=== PATIENT | male | born 1960 | race Two or more races ===

== ENCOUNTER 2023-05-01 15:27 | Emergency (ER) | payer OTHER, MEDICARE, MEDICAID, SELFPAY ==
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
[2023-05-01 15:47] VITALS: BP 138/80; PULSE 80; RESP 18; TEMP 36.7; O2SAT 99; BMI 25.8
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
== END 2023-05-01 19:45 | disposition home or self-care (01) ==
PROVIDERS: Emergency Provider Emergency Medicine; PCP Pediatrics
DX: S80.11XA Contusion of right lower leg, initial encounter (principal); S80.12XA Contusion of left lower leg, initial encounter; R60.0 Localized edema; M54.2 Cervicalgia; V43.52XA Car driver injured in collision with other type car in traffic accident, initial encounter; Y93.9 Activity, unspecified; Y92.410 Unspecified street and highway as the place of occurrence of the external cause; Y99.9 Unspecified external cause status
CPT/HCPCS: 73590; 99282; 99283

== ENCOUNTER 2023-05-10 09:55 | Outpatient (AMB) | payer OTHER, SELFPAY ==
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
[2023-05-10 09:58] VITALS: BP 114/70; PULSE 74; O2SAT 98; BMI 26.5
== END 2023-05-10 10:32 | disposition home or self-care (01) ==
PROVIDERS: PCP Physician Assistant; Visit Provider Nurse Practitioner Family
DX: M79.604 Pain in right leg (principal); M79.605 Pain in left leg; S16.1XXA Strain of muscle, fascia and tendon at neck level, initial encounter; Z04.3 Encounter for examination and observation following other accident; V89.2XXA Person injured in unspecified motor-vehicle accident, traffic, initial encounter
CPT/HCPCS: 99213

== ENCOUNTER 2023-06-06 12:07 | Outpatient (AMB) | payer OTHER, SELFPAY ==
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
[2023-06-06 12:38] VITALS: BP 124/70; PULSE 86; RESP 12; O2SAT 97; BMI 26.2
== END 2023-06-06 13:10 | disposition home or self-care (01) ==
PROVIDERS: PCP Physician Assistant; Visit Provider Nurse Practitioner Family
DX: M79.604 Pain in right leg (principal); E78.00 Pure hypercholesterolemia, unspecified
CPT/HCPCS: 99213

== ENCOUNTER 2023-06-10 09:12 | Outpatient (REF) | payer OTHER, SELFPAY ==
--- NOTE | ~2023-06-10 | XR_ITS ---
EXAMINATION: XR TIBIA AND FIBULA, RIGHT CLINICAL INFORMATION: Leg pain COMPARISON: Tibia and fibula radiographs 05/01/2023 TECHNIQUE: AP and lateral views of the right tibia and fibula were obtained. FINDINGS: No acute fracture or dislocation. Subcentimeter indeterminate sclerotic lesion in the lateral tibial plateau. Quadriceps tendon enthesopathy. The joint spaces are maintained. Ankle mortise appears congruent. Atherosclerotic vascular calcification. XR/XR tibia fibula RT 2V IMPRESSION: 1. No acute fracture or dislocation. Quadriceps tendon enthesopathy. 2. Subcentimeter indeterminate sclerotic lesion in the lateral tibial plateau, the absence of primary malignancy possibly reflecting a bone island. If patient has a primary malignancy CT or bone scan would be more sensitive for evaluation.
[2023-06-10 09:51] LABS: Basophils Absolute Auto 0.1 X10*3/uL (0.0-0.2); Basophils Percent Auto 0.7 % (0-2); Eosinophils Absolute Auto 0.1 X10*3/uL (0.0-0.4); Eosinophils Percent Auto 1.6 % (0-4); Hematocrit 47.2 % (42.0-52.0); Hemoglobin 14.7 g/dl (14.0-18.0); Imm Gran Abs Auto 0.04 X10*3/uL (0.00-0.03); Imm Gran Pct Auto 0.5 % (0.0-0.4); Lymphocytes Absolute Auto 2.8 X10*3/uL (1.2-4.9); MANUAL DIFF FLAG NO; Mean Corpuscular HGB Conc 31.1 g/dl (31.0-36.0); Mean Corpuscular Hemoglobin 26.1 pg (27.0-33.0); Mean Corpuscular Volume 83.8 fL (80.0-98.0); Mean Platelet Volume 10.5 fL (9.4-12.4); Monocytes Absolute Auto 0.6 X10*3/uL (0.1-1.2); Monocytes Percent Auto 7.7 % (2-11); Neutrophils Percent Auto 52.5 % (45-73); Platelet Count 251 X10*3/uL (160-400); Red Blood Count 5.63 X10*6/uL (4.60-5.80); Red Cell Distribution Width 13.9 % (11.0-16.0); White Blood Count 7.6 X10*3/uL (4.8-10.8)
[2023-06-10 10:47] LABS: Alanine Aminotransferase 21 U/L (0-40); Albumin Level 4.3 g/dL (3.5-5.0); Alkaline Phosphatase 107 U/L (39-117); Anion Gap 16 (12-20); Aspartate Amino Transferase 21 U/L (5-37); Bilirubin Total 0.5 mg/dL (0.0-1.0); Blood Urea Nitrogen 23 mg/dL (9-16); Calcium 9.4 mg/dL (8.4-10.2); Carbon Dioxide 24 mmol/L (22-29); Chloride 107 mmol/L (96-108); Cholesterol 244 mg/dL (<200); Estimated Glomerular Filt Rate > 60; Glucose Fasting 94 mg/dL (60-99); HDL Cholesterol 51 mg/dL (>40); LDL Cholesterol Calculated 172 mg/dL (<100); Potassium 4.6 mmol/L (3.3-5.1); Sodium 142 mmol/L (135-145); Total Protein 7.5 g/dL (6.5-8.0); Triglycerides 105 mg/dL (<150)
[2023-06-10 10:59] LABS: TSH reflex Free T4 1.61 uIU/mL (0.32-4.0)
== END 2023-06-10 09:13 | disposition home or self-care (01) ==
LOC: HO.XRAY 09:12
PROVIDERS: PCP Physician Assistant; Visit Provider Nurse Practitioner Family
DX: Z13.220 Encounter for screening for lipoid disorders (principal); Z13.29 Encounter for screening for other suspected endocrine disorder; Z13.0 Encounter for screening for diseases of the blood and blood-forming organs and certain disorders involving the immune mechanism; M79.604 Pain in right leg; E78.00 Pure hypercholesterolemia, unspecified
CPT/HCPCS: 36415; 73590; 80053; 80061; 84443; 85025

== ENCOUNTER 2023-07-26 06:56 | Outpatient (REF) | payer OTHER, SELFPAY ==
--- NOTE | ~2023-07-26 | CT_ITS ---
EXAMINATION: CT LOWER LEG WITHOUT CONTRAST, RIGHT CLINICAL INFORMATION: Disorder of bone, unspecified. Possible bone island. COMPARISON: Right tibia/fibular radiographs dated 06/10/2023. TECHNIQUE: Contiguous axial CT images of the right lower leg were obtained without contrast. Sagittal and coronal reformats were provided and reviewed. This CT examination was performed using dose optimization techniques as appropriate, variously including the following: *Automated exposure control *Adjustment of mA and/or kV according to patient size (this includes techniques or standardized protocols for targeted exams where dose is matched to indication/reason for exam; i.e. extremities or head) *Use of iterative reconstruction technique. DOSE: 308 mGy-cm. FINDINGS: Within the posterolateral aspect of the lateral tibial plateau, adjacent to the proximal tibiofibular joint, there are 2 sclerotic foci measuring up to 0.6 and 0.4 cm. No adjacent periosteal reaction. No soft tissue component or lytic component. Findings are consistent with bone islands. Additional small bone islands within the distal femur and talus. No concerning lytic or blastic osseous lesion. No acute fracture or dislocation. There are corticated ossifications adjacent to the medial and lateral malleoli, consistent with remote, unfused avulsion fractures. There is a healed, oblique distal fibular fracture in anatomic alignment. Dystrophic ossification along the anterior aspect of the lateral malleolus and posterolateral aspect of the tibial plafond, consistent with remote avulsion injuries. The ankle mortise is maintained. No abnormal soft tissue mass or fluid collection. No significant joint effusion. The visualized muscles and tendons are grossly intact; however, evaluation is limited on CT examination. CT/CT lower leg RT wo IV con IMPRESSION: 1. Small bone and within the proximal tibia corresponding to the prior radiographs. Additional bone islands within the distal femur and talus. No concerning lytic or blastic osseous lesion. 2. Healed distal fibular fracture as well as remote, unfused fracture fragments at the medial and lateral malleoli. No acute fracture or dislocation.
== END 2023-07-26 06:57 | disposition home or self-care (01) ==
LOC: HO.CT 06:56
PROVIDERS: PCP Physician Assistant; Visit Provider Nurse Practitioner Family
DX: M89.9 Disorder of bone, unspecified (principal)
CPT/HCPCS: 73700

== ENCOUNTER 2023-08-13 10:02 | Outpatient (AMB) | payer OTHER, SELFPAY ==
[2023-08-13 10:59] VITALS: BP 120/80; PULSE 67; O2SAT 97; BMI 25.8
--- NOTE | 2023-08-13 10:59 | A.OFFPC_ITS ---
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 Language: Ukrainian Accompanied by: Self / Same As Patient Allergies No Known Allergies Allergy (Verified 08/13/23 11:11) Medication List - Last Reconciled 08/13/23 by Aubrey Van PA-C naproxen 250 mg PO BID PRN Tobacco use date assessed: 05/10/23 Dental Screening Dental Screen Date: 08/13/23 Did you have a dental visit in the last 12 months?: No Did you have a dental problem in the last 6 months where you did not have access to dental care?: No Was dental information given to patient?: Patient has dentist HPI 2 month follow up HPI Details Patient is a 63-year-old female here today for follow-up visit. This is the 1st time I am meeting this 60 year year old Ukrainian-speaking male. Has a past medical history of hyperlipidemia Concern-> he was previously seeing a urologist for his erectile dysfunction. Was on medication in the past with good affect. He was interested in restarting medication for his erectile dysfunction. HLD: Most recent lipid panel showing elevated total cholesterol. Was previously on statin therapy though has been taken. Will work on lifestyle modifications on reducing his low high cholesterol foods in his diet. If LDL remains above 160 will consider restarting low-dose statin therapy. Laboratory Tests 06/10/23 Unknown Creatinine 0.99 Cholesterol 244 H LDL Cholesterol, C alc 172 H [facility] Medical History No pertinent family history Herniated cervical disc Lower back pain No pertinent past medical history Surgical History No pertinent past surgical history Family History Mother No problems noted. Father No problems noted. Brother No problems noted. Brother No problems noted. Brother No problems noted. Brother No problems noted. Sister No problems noted. Sister No problems noted. Sister No problems noted. Son No problems noted. Son No problems noted. Son No problems noted. Daughter No problems noted. Social History Housing: Apartment Patient Tobacco Use Status: Never used Tobacco e-Cigarette/Vaping Use: Never Used Second Hand Smoke Exposure: No Current occupational status: unemployed Cognitive needs: No Hearing needs: No Vision needs: Yes Questionnaire Thrive Questionnaire Date Thrive assessed: 05/10/23 DWIGHT-7 AMB Questionnaire DWIGHT-7 Date DWIGHT - 7 assessed: 05/10/23 Source: Developed by Drs. Wan Donis, Ailyn Fay, Chase Mercedes and colleagues, with an educational walt from [employer]. Review of Systems Const Denies headache(s) Eyes Denies loss of vision ENT Denies vertigo, Denies dizziness, Denies headache(s) and Denies sore throat Card Denies chest pain, Denies leg edema and Denies lightheadedness Resp Denies cough, Denies hemoptysis and Denies wheezing GI Denies abdominal pain, Denies melena, Denies constipation, Denies diarrhea and Denies vomiting Denies dysuria, Denies urinary frequency and Denies urinary urgency Musc Denies arthralgias, Denies joint swelling, Denies numbness and Denies tingling Neuro Denies Abnormal speech present, Denies behavioral changes, Denies vertigo, Denies dizziness, Denies headache(s), Denies loss of vision, Denies memory loss, Denies numbness and Denies tingling Psych Denies anxiety, Denies behavioral changes, Denies depression, Denies memory loss and Denies panic attacks Angel/Lymph Denies easy bleeding and Denies easy bruising Aller/Immun Denies wheezing Physical exam (Primary Care) Vital Signs: Last Vital Signs Pulse 67 08/13/23 10:59 BP 120/80 08/13/23 10:59 Pulse Ox 97 08/13/23 10:59 Oxygen Delivery Method Room Air 08/13/23 10:59 BMI result Body Mass Index 25.8 Tobacco/Smoking Status: Tobacco use Status Tobacco use date assessed 05/10/23 08/13/23 11:03 Patient Tobacco Use Status Never used Tobacco 08/13/23 11:03 Tobacco use type 06/06/23 13:11 e-Cigarette/Vaping Use Never Used 08/13/23 11:03 Thrive Assessment: Date of Thrive Assessment Date Thrive assessed 05/10/23 08/13/23 11:03 Const General: healthy appearing, no acute distress, alert and awake Nutritional Appearance: well nourished Orientation/consciousness: oriented to person, oriented to place and oriented to time HENMT Ears: TM's normal bilaterally General nose exam: Normal nasal mucous membranes and turbinates present Eyes Conjunctivae: conjunctivae normal Sclerae: sclerae normal Pupils: Equal, round and reactive pupils present Neck Neck: Yes no lymphadenopathy and Yes no JVD Thyroid: Thyroid normal Carotids: no bruits Resp Effort & Inspection: normal respiratory effort and not tachypneic Auscultation: no crackles, no rales, no rhonchi and no wheezes Cardio Rate: regular rate Rhythm: regular rhythm Heart sounds: no murmurs and normal S1 and S2 GI Palpation (GI): Soft to palpation, nontender, no hepatomegaly and no splenomegaly Auscultation: normal bowel sounds Skin General skin exam: no rashes or lesions noted and dry skin Neuro General: oriented to person, oriented to place and oriented to time Cranial nerves: Yes Equal, round and reactive pupils present Speech: No Abnormal speech present Gait exam (Neuro): Normal gait present Motor exam (neuro): no tremor noted Extrem Right upper extremity: full ROM Left upper extremity: full ROM Right lower extremity: full ROM; no edema Left lower extremity: full ROM; no edema Psych Mental Status: mental status grossly normal Speech and movement: Normal speech and movement present Affect: normal affect Attitude: cooperative Thought process: Normal thought process present Immunizations tetanus-diphtheria toxoids-Td 2 Lf unit-2 Lf unit/0.5 mL IM suspension Performing Provider: Aubrey Van PA-C Performing Location: [facility] Administered by: RALF Lopez on 08/13/23 11:34 Dose Route Admin Location Dispensed Lot Number Expiration Date [employer] Mer[employer] 0.5 mL IM Left Deltoid 0.5 mL [id number] 01/20/24 [address]-4 [employer] VIS Given Date VIS Provided VIS Publication Date 08/13/23 Single Vaccine 21 Eligibility Eligibility Date Funding Source Not [facility] Eligible 08/13/23 Private Assessment and Plan Assessment & Plan (1) Hypercholesteremia: Code(s): E78.00 - Pure hypercholesterolemia, unspecified Plan: Patient's most recent lipid panel showing elevated cholesterol and LDL. Will work on lifestyle modifications for the next 6 months and if lipid panel remains elevated will consider restarting low-dose statin therapy. LDL to be below 160 (2) Erectile dysfunction: Code(s): N52.9 - Male erectile dysfunction, unspecified Qualifiers: Erectile dysfunction type: drug-induced Qualified Code(s): N52.2 - Drug-induced erectile dysfunction Plan: Will restart erectile dysfunction medication. He is interested in establishing care with Urology as well. Orders: Orders Lipid Panel 08/13/23 E78.00 - Pure hypercholesterolemia, unspecified Prostate Specific Antigen Scr 08/13/23 E78.00 - Pure hypercholesterolemia, unspecified, Z12.5 - Encounter for screening for malignant neoplasm of prostate Comprehensive [place]. Panel Fast 08/13/23 E78.00 - Pure hypercholesterolemia, unspecified Td State Immunization 08/13/23 E78.00 - Pure hypercholesterolemia, unspecified, Z23 - Encounter for immunization Referrals Urology Referral N52.2 - Drug-induced erectile dysfunction Medications: New sildenafil 100 mg PO DAILY 10 days PRN 10 tabs 0RF sexual activity N52.2 - Drug-induced erectile dysfunction Coding Level of Care Code Est Pt Level 4 (05870) Diagnoses Hypercholesteremia E78.00 Drug-induced erectile dysfunction N52.2 Erectile dysfunction type: drug-induced
== END 2023-08-13 11:38 | disposition home or self-care (01) ==
PROVIDERS: PCP Physician Assistant; Visit Provider Physician Assistant
DX: Z23 Encounter for immunization (principal); E78.00 Pure hypercholesterolemia, unspecified
CPT/HCPCS: 90471; 90714; 99214

== ENCOUNTER 2023-10-03 13:43 | Outpatient (AMB) | payer OTHER, SELFPAY ==
--- NOTE | 2023-10-03 13:52 | A.OFFVIS_ITS ---
Intake Intake Visit Reasons: erectile dysfunction Intake Note: NEW Patient presents today to established treatment for Erectile Dysfuction Meds- None Allergies to Antibiotic- No Known Allergies Blood Thinner- None Stationary Equipment Mechanic Required: Yes Stationary Equipment Mechanic Language: Lead Furnace Operator Name: Schuyler Ennis Information Interpreted: non-clinical & clinical Accompanied by: Self / Same As Patient Allergies No Known Allergies Allergy (Verified 10/03/23 14:06) HPI HPI Comments History of Present Illness Details 63-year-old male here today for new shital ent visit. Grenadian-speaking male. Certified medical office assistant present. Has a past medical history of hyperlipidemia. He states he was previously seeing a urologist for his erectile dysfunction. He describes having peyronies disease. He denies irritative voiding symptoms. Plan: Cialis 5 mg daily Refer to Dr Gaona for further evaluation of peyronies PSA screening [facility] Medical History No pertinent family history Herniated cervical disc Lower back pain No pertinent past medical history Surgical History No pertinent past surgical history Family History Mother No problems noted. Father No problems noted. Brother No problems noted. Brother No problems noted. Brother No problems noted. Brother No problems noted. Sister No problems noted. Sister No problems noted. Sister No problems noted. Son No problems noted. Son No problems noted. Son No problems noted. Daughter No problems noted. Social History Housing: Apartment Patient Tobacco Use Status: Never used Tobacco e-Cigarette/Vaping Use: Never Used Second Hand Smoke Exposure: No Current occupational status: unemployed Cognitive needs: No Hearing needs: No Vision needs: Yes Review of Systems Const All systems reviewed & are unremarkable except as noted in HPI and below Reports no additional complaints Eyes Reports no additional complaints ENT Reports no additional complaints Card Denies dyspnea Resp Denies cough and Denies dyspnea GI Reports no additional complaints Musc Reports no additional complaints Skin/Breast Denies rash and Denies unusual bruising Neuro Reports no additional complaints Psych Reports no additional complaints Endo Reports no additional complaints Angel/Lymph Reports no additional complaints Aller/Immun Reports no additional complaints Physical Exam Const General: healthy appearing, no acute distress and well developed Orientation/consciousness: patient oriented x3 HEENT Head: Yes normocephalic and Yes atraumatic Eyes Conjunctivae: conjunctivae normal Neck Neck: Yes normal visual inspection Chest Chest palpation & inspection: normal inspection of the chest Resp Effort & Inspection: normal respiratory effort Cardio Rate: regular rate GI Inspection: Yes normal to inspection Palpation (GI): Soft to palpation Other: penile plaque not palpated well Penis: normal penis Scrotum: scrotum normal Skin General skin exam: no rashes or lesions noted Neuro General: patient oriented x3 Extrem General: No pedal edema Psych Appearance: grossly normal Affect: normal affect Results AMB Urinalysis, Automated UA Leukoctes 0 Malachi/uL [facility] on 10/03/23 14 :09 UA Nitrite Negative Last Edit [facility] on 10/03/23 14: 09 UA Urobilinogen 0.2 mg/dL Last Edit by Susan [facility]adorjah Amador [facility] on 4 14:09 UA Protein 0 mg/dL Last Edit by [facility] on 10/03/23 14:09 UA pH 6.5 Last Edit by Susan [facility]adorjah Amador [facility] on 10/03/23 14:09 UA Blood 0 Shreyas/uL Last Edit by Susan [facility]adorjah Amador [facility] on 10/03/23 14:09 UA Specific [place] 1.025 Last Edit by Susan Amadorjah Amador [facility] on 14:09 UA Ketone Negative Last Edit by Susan Amadorjah Amador [facility] on 10/03/23 14:0 9 UA Bilirubin 0 mg/dL Last Edit by [facility], [facility] on 10/03/23 14: 09 UA Glucose 0 mg/dL Last Edit by Susan Amador CMA on 10/03/23 14:09 Results Reviewed Results Reviewed: Laboratory Last Values Urine pH (Auto) 6.5 10/03/23 13:53 Specific [place] (Auto) 1.025 10/03/23 13:53 Urine Protein (Auto) 0 mg/dL 10/03/23 13:53 Glucose (UA)(Auto) 0 mg/dL 10/03/23 13:53 Urine Ketones (Auto) Negative 10/03/23 13:53 Urine Blood (Auto) 0 Shreyas/uL 10/03/23 13:53 Urine Nitrite (Auto) Negative 10/03/23 13:53 Urine Bilirubin (Auto) 0 mg/dL 10/03/23 13:53 Urine Urobilinogen (Auto) 0.2 mg/dL 10/03/23 13:53 Leukocyte Esterase (Auto) 0 Malachi/uL 10/03/23 13:53 Assessment & Plan Assessment & Plan (1) Erectile dysfunction: Code(s): N52.9 - Male erectile dysfunction, unspecified Qualifiers: Erectile dysfunction type: drug-induced Qualified Code(s): N52.2 - Drug-induced erectile dysfunction (2) Peyronie's disease: Code(s): N48.6 - Induration penis plastica (3) Screening PSA (prostate specific antigen): Code(s): Z12.5 - Encounter for screening for malignant neoplasm of prostate Plan Cialis 5 mg daily Refer to Dr Gaona for further evaluation of peyronies PSA screening Orders: Orders AMB Urinalysis Automated 10/03/23 Z13.9 - Encounter for screening, unspecified Medications: New tadalafil (Cialis) [id number] [facility] [id number] Member [id number] 5 mg PO DAILY 30 tabs 5RF Coding Level of Care Code New Pt Level 4 (78411) Diagnoses Drug-induced erectile dysfunction N52.2 Erectile dysfunction type: drug-induced Peyronie's disease N48.6 Screening PSA (prostate specific antigen) Z12.5
== END 2023-10-03 14:45 | disposition home or self-care (01) ==
PROVIDERS: PCP Physician Assistant; Visit Provider Urology
DX: N52.2 Drug-induced erectile dysfunction (principal); N48.6 Induration penis plastica; Z12.5 Encounter for screening for malignant neoplasm of prostate
CPT/HCPCS: 99204

== ENCOUNTER → 2023-10-03 13:43 | Outpatient (BNVA) | payer OTHER, SELFPAY | PROVIDERS: PCP Physician Assistant; Visit Provider Urology | DX: N52.2 Drug-induced erectile dysfunction (principal); N48.6 Induration penis plastica; Z12.5 Encounter for screening for malignant neoplasm of prostate | CPT/HCPCS: 81003; 99202 ==

== ENCOUNTER 2023-10-07 10:17 | Outpatient (REF) | payer OTHER, SELFPAY ==
[2023-10-07 12:33] LABS: Alanine Aminotransferase 16 U/L (0-40); Albumin Level 4.1 g/dL (3.5-5.0); Alkaline Phosphatase 105 U/L (39-117); Anion Gap 12 (12-20); Aspartate Amino Transferase 15 U/L (5-37); Bilirubin Total 0.5 mg/dL (0.0-1.0); Blood Urea Nitrogen 17 mg/dL (9-16); Calcium 9.1 mg/dL (8.4-10.2); Carbon Dioxide 29 mmol/L (22-29); Chloride 104 mmol/L (96-108); Cholesterol 253 mg/dL (<200); Estimated Glomerular Filt Rate > 60; Glucose Fasting 91 mg/dL (60-99); HDL Cholesterol 48 mg/dL (>40); LDL Cholesterol Calculated 178 mg/dL (<100); Potassium 3.8 mmol/L (3.3-5.1); Sodium 141 mmol/L (135-145); Total Protein 7.4 g/dL (6.5-8.0); Triglycerides 138 mg/dL (<150)
[2023-10-07 13:00] LABS: Prostate Specific Antigen Scr 2.33 ng/mL (<0.05-4.0)
== END 2023-10-07 10:18 | disposition home or self-care (01) ==
LOC: HO.10HDL 10:17
PROVIDERS: Physician Assistant; Visit Provider Nurse Practitioner Family
DX: Z12.5 Encounter for screening for malignant neoplasm of prostate (principal); E78.00 Pure hypercholesterolemia, unspecified
CPT/HCPCS: 36415; 80053; 80061; 84153

== ENCOUNTER 2023-12-25 09:40 | Outpatient (AMB) | payer OTHER, SELFPAY ==
--- NOTE | 2023-12-25 10:09 | A.OFFPC_ITS ---
Vital Signs 12/25/23 10:11 Height 5 ft 6 in Weight 165 lb 4 oz BMI 26.7 BP 110/72 Blood Pressure Location Lt brachial Position Sitting Pulse 78 Pulse Source Pulse Oximeter Pulse Oximetry (%) 98 Oxygen Delivery Method Room Air Intake Visit Reasons: PE Intake Note: Patient is here today for a physical. 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 Supervisor Nut Processing: Not Required per policy Accompanied by: Self / Same As Patient Allergies No Known Allergies Allergy (Verified 12/25/23 11:17) Medication List - Last Reconciled 12/25/23 by Tejas Fox MD atorvastatin 10 mg PO DAILY 90 days naproxen 250 mg PO BID PRN sildenafil 100 mg PO DAILY PRN 10 days tadalafil (Cialis) 5 mg PO DAILY Tobacco use date assessed: 12/25/23 Dental Screening Dental Screen Date: 12/25/23 Did you have a dental visit in the last 12 months?: Yes Did you have a dental problem in the last 6 months where you did not have access to dental care?: No Was dental information given to patient?: Patient has dentist HPI PE HPI Details 63-year-old male presents to the office requesting a physical. His primary care provider is Andrés Van and patient would like to keep him as his primary care provider. Patient is disabled due to back pain and does not take any medications for it. He woke up this morning with headaches and neck pain. Patient has had a colonoscopy 6-7 years ago. He would like a refill on his Viagra. [facility] Medical History (Updated 12/25/23 @ 11:22 by Tejas Fox MD) Erectile dysfunction No pertinent family history Herniated cervical disc Lower back pain No pertinent past medical history Surgical History No pertinent past surgical history Family History Mother No problems noted. Father No problems noted. Brother No problems noted. Brother No problems noted. Brother No problems noted. Brother No problems noted. Sister No problems noted. Sister No problems noted. Sister No problems noted. Son No problems noted. Son No problems noted. Son No problems noted. Daughter No problems noted. Social History Housing: Apartment Patient Tobacco Use Status: Never used Tobacco e-Cigarette/Vaping Use: Never Used Second Hand Smoke Exposure: No service: No Current occupational status: unemployed Cognitive needs: No Hearing needs: No Vision needs: Yes Questionnaire PHQ-9 Over the last 2 weeks, how often have you been bothered by any of the following problems? 1. Little interest or pleasure in doing things: not at all 2. Feeling down, depressed, or hopeless: not at all 3. Trouble falling or staying asleep, or sleeping too much: not at all 4. Feeling tired or having little energy: not at all 5. Poor appetite or overeating: not at all 6. Feeling bad about yourself - or that you are a failure or have let yourself or your family down: not at all 7. Trouble concentrating on things, such as reading the newspaper or watching television: not at all 8. Moving or speaking so slowly that other people could have noticed. Or the opposite - being so fidgety or restless that you have been moving around a lot more than usual: not at all 9. Thoughts that you would be better off or of hurting yourself in some way: not at all Total score: 0 Depression Screening Interpretation: Negative Depression Screening Done: Yes Source: Developed by Drs. Wan Donis, Ailyn Fay, Chase Mercedes and colleagues, with an educational walt from [employer]. Thrive Questionnaire Date Thrive assessed: 12/25/23 I am a: Patient What is your living situation today?: I have a steady place to live Within the past 12 months, did the food you bought not last and you didn't have the money to get more?: Never true Within the past 12 months, did you worry whether your food would run out before you got money to buy more?: Never true Do you have trouble paying for medicines?: No Do you have trouble getting transportation to medical appointments?: No Do you have trouble paying your heating and electricity bill?: No Do you have trouble taking care of your child, family member or friend?: No Do you have trouble with day-to-day activities such as bathing, preparing meals, shopping, managing finances, etc.?: No Are you currently unemployed and looking for a job?: No Are you interested in more education?: No Currently or been in a relationship where the following occur: no concerns reported THRIVE Score: 0 AUDIT C Alcohol Use Questionnaire (AUDIT-C) 1. How often do you have a drink containing alcohol?: Never Total Score: 0 DWIGHT-7 AMB Questionnaire DWIGHT-7 Date DWIGHT - 7 assessed: 12/25/23 Feeling nervous, anxious, or on edge: 0 = Not at all Not being able to stop or control worryin = Not at all Worrying too much about different things: 0 = Not at all Trouble relaxin = Not at all Being so restless that it is hard to sit still: 0 = Not at all Becoming easily annoyed or irritable: 0 = Not at all Feeling afraid as if something awful might happen: 0 = Not at all Total DWIGHT-7 score (0-4 normal; 5-9 mild; 10-14 moderate; 15-21 severe): 0 Source: Developed by Drs. Wan Donis, Ailyn Fay, Chase Mercedes and colleagues, with an educational walt from [employer]. Physical exam (Primary Care) Vital Signs: Last Vital Signs Pulse 78 12/25/23 10:11 BP 110/72 12/25/23 10:11 Pulse Ox 98 12/25/23 10:11 Oxygen Delivery Method Room Air 12/25/23 10:11 Care Plan Goal for BP management: Blood pressure is in range. BMI result Body Mass Index 26.7 Tobacco/Smoking Status: Tobacco use Status Tobacco use date assessed 12/25/23 12/25/23 10:17 Patient Tobacco Use Status Never used Tobacco 12/25/23 10:17 Tobacco use type 06/06/23 13:11 e-Cigarette/Vaping Use Never Used 12/25/23 10:17 PHQ-9: PHQ-9 Score PHQ-9: Total score 0 12/25/23 11:00 Depression Screening Interpretation: Negative Thrive Assessment: Date of Thrive Assessment Date Thrive assessed 12/25/23 12/25/23 10:17 Currently or been in a relationship where the following occur: no concerns reported Const General: cooperative and healthy appearing Nutritional Appearance: well nourished Orientation/consciousness: patient oriented x3 Limitations: no limitations HENMT Head: Yes normal to inspection Eyes General: appearance normal, both eyes and all related structures Neck Neck: Yes normal visual inspection Chest Chest palpation & inspection: normal palpation of entire chest wall Resp Effort & Inspection: normal respiratory effort Neuro General: patient oriented x3 Assessment and Plan Assessment & Plan (1) Erectile dysfunction: Code(s): N52.9 - Male erectile dysfunction, unspecified Qualifiers: Erectile dysfunction type: drug-induced Qualified Code(s): N52.2 - Drug-induced erectile dysfunction (2) Annual physical exam: Code(s): Z00.00 - Encounter for general adult medical examination without abnormal findings Plan: Blood work has been ordered. Medications: Refilled sildenafil 100 mg PO DAILY 10 days PRN 10 tabs 0RF sexual activity N52.2 - Drug-induced erectile dysfunction Coding Level of Care Code Est Pt Prev Care 40-64y(41555) Diagnoses Drug-induced erectile dysfunction N52.2 Erectile dysfunction type: drug-induced Annual physical exam Z00.00
[2023-12-25 10:11] VITALS: BP 110/72; PULSE 78; O2SAT 98; BMI 26.7
== END 2023-12-25 11:15 | disposition home or self-care (01) ==
PROVIDERS: PCP Physician Assistant; Visit Provider Internal Medicine
DX: N52.2 Drug-induced erectile dysfunction (principal); Z00.00 Encounter for general adult medical examination without abnormal findings
CPT/HCPCS: 99396

== ENCOUNTER 2023-12-27 14:02 | Outpatient (AMB) | payer OTHER, SELFPAY ==
--- NOTE | 2023-12-27 14:30 | MHC.OFFVIS ---
Intake Visit Reasons: Peyronies Intake Note: Patient is present for Evaluation for Peyronies Urology Medication: Cialis Allergies No Known Allergies Allergy (Verified 12/25/23 11:17) HPI Comments Details: Edgardo is a pleasant male. He is a patient of Dr. Van. 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 Father No problems noted. Brother No problems noted. Brother No problems noted. Brother No problems noted. Brother No problems noted. Sister No problems noted. Sister No problems noted. Sister No problems noted. Son No problems noted. Son No problems noted. Son No problems noted. Daughter No problems noted. Social History Housing: Apartment Patient Tobacco Use Status: Never used Tobacco e-Cigarette/Vaping Use: Never Used Second Hand Smoke Exposure: No service: No Current occupational status: unemployed Cognitive needs: No Hearing needs: No Vision needs: Yes Review of Systems Const Denies chills and Denies fever(s) Card Reports no additional complaints and Denies syncope Resp Denies cough GI Denies abdominal pain and Denies heartburn Reports as per HPI and Denies change in libido Neuro Denies syncope Psych Denies change in libido Endo Denies change in libido Physical Exam Const General: cooperative, healthy appearing, comfortable and no acute distress Orientation/consciousness: patient oriented x3 HEENT Face and sinus: Yes normal facial exam Mouth: moist mucous membranes Neck Neck: Yes normal visual inspection, Yes full ROM and Yes trachea midline Chest Chest palpation & inspection: normal inspection of the chest Resp Effort & Inspection: normal respiratory effort, able to speak in complete sentences and no respiratory distress GI Inspection: Yes normal to inspection Back/Spine/Pelvis Cervical Spine: normal cervical lordosis Thoracic/Lumbar Spine: thoracic and lumbar spine normal to inspection Skin General skin exam: no rashes or lesions noted Neuro General: patient oriented x3, gait normal, tone normal and moves all extremities Extrem General: Yes normal to inspection and Yes capillary refill normal Assessment & Plan Assessment & Plan (1) Erectile dysfunction: Code(s): N52.9 - Male erectile dysfunction, unspecified Category: Medical Qualifiers: Erectile dysfunction type: drug-induced Qualified Code(s): N52.2 - Drug-induced erectile dysfunction (2) Peyronie's disease: Code(s): N48.6 - Induration penis plastica Category: Medical Plan Three-month follow-up Medications: New tadalafil 10 mg PO DAILY 90 tabs 0RF sexual activity 90 days N52.2 - Drug-induced erectile dysfunction, N52.9 - Male erectile dysfunction, unspecified tadalafil 20 mg PO ONCE PRN 30 tabs 0RF sexual activity 30 days N52.2 - Drug-induced erectile dysfunction, N52.9 - Male erectile dysfunction, unspecified Patient Instructions: Imaging studies, laboratory and physical exam results were discussed and reviewed in detail. No major barriers to patient understanding were identified. An opportunity to ask questions regarding the treatment plan was provided. All questions were answered. The patient expressed understanding and agreement with the above treatment plan. The patient is aware they should contact our office by phone for worsening of their current condition or the appearance of new urologic symptoms. Compliance is encouraged with any medications and followup testing that is ordered. It is a privilege to participate in the urologic care of your patient. If you have any questions or concerns regarding treatment for the above conditions, or other urologic issues, please do not hesitate to contact me. The office telephone contact is [phone]. This note is constructed using voice recognition software. While every effort has been made to ensure accuracy data entry representative errors may have been included. Yours sincerely, Dr Rocky Gaona MD, [facility] - Urology Providers of Expert, Compassionate Care for the Genitourinary System
== END 2023-12-27 14:47 | disposition home or self-care (01) ==
PROVIDERS: PCP Physician Assistant; Visit Provider Urology
DX: N48.6 Induration penis plastica (principal); N52.2 Drug-induced erectile dysfunction
CPT/HCPCS: 99214

== ENCOUNTER → 2023-12-27 14:02 | Outpatient (BNVA) | payer OTHER, SELFPAY | PROVIDERS: PCP Physician Assistant; Visit Provider Urology | DX: N48.6 Induration penis plastica (principal); N52.9 Male erectile dysfunction, unspecified | CPT/HCPCS: 99212 ==

== ENCOUNTER 2024-03-24 12:39 | Outpatient (AMB) | payer OTHER, SELFPAY ==
--- NOTE | 2024-03-24 13:06 | A.OFFVIS_ITS ---
Intake Visit Reasons: 3m follow up Intake Note: Patient is Present for Follow Up Med Review Urology Medication: tadalafil Antibiotic Allergies:None Blood Thinners:none Allergies No Known Allergies Allergy (Verified 03/24/24 13:18) Medication List - Last Reconciled 03/24/24 by Rocky Gaona MD atorvastatin 10 mg PO DAILY 90 days naproxen 250 mg PO BID PRN sildenafil 100 mg PO DAILY PRN 10 days tadalafil 20 mg PO ONCE PRN 30 days tadalafil (Cialis) 5 mg PO DAILY tadalafil 10 mg PO DAILY 90 days HPI Comments Details: Edgardo is a pleasant male. He is a patient of Dr. Van. 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 Father No problems noted. Brother No problems noted. Brother No problems noted. Brother No problems noted. Brother No problems noted. Sister No problems noted. Sister No problems noted. Sister No problems noted. Son No problems noted. Son No problems noted. Son No problems noted. Daughter No problems noted. Social History Housing: Apartment Patient Tobacco Use Status: Never used Tobacco e-Cigarette/Vaping Use: Never Used Second Hand Smoke Exposure: No service: No Current occupational status: unemployed Cognitive needs: No Hearing needs: No Vision needs: Yes Review of Systems Const Denies chills and Denies fever(s) Card Reports no additional complaints and Denies syncope Resp Denies cough GI Denies abdominal pain and Denies heartburn Reports as per HPI and Denies change in libido Neuro Denies syncope Psych Denies change in libido Endo Denies change in libido Physical Exam Const General: cooperative, healthy appearing, comfortable and no acute distress Orientation/consciousness: patient oriented x3 HEENT Face and sinus: Yes normal facial exam Mouth: moist mucous membranes Neck Neck: Yes normal visual inspection, Yes full ROM and Yes trachea midline Chest Chest palpation & inspection: normal inspection of the chest Resp Effort & Inspection: normal respiratory effort, able to speak in complete sent ences and no respiratory distress GI Inspection: Yes normal to inspection Back/Spine/Pelvis Cervical Spine: normal cervical lordosis Thoracic/Lumbar Spine: thoracic and lumbar spine normal to inspection Skin General skin exam: no rashes or lesions noted Neuro General: patient oriented x3, gait normal, tone normal and moves all extremities Extrem General: Yes normal to inspection and Yes capillary refill normal Assessment & Plan Assessment & Plan (1) Erectile dysfunction: Code(s): N52.9 - Male erectile dysfunction, unspecified Category: Medical Qualifiers: Erectile dysfunction type: drug-induced Qualified Code(s): N52.2 - Drug-induced erectile dysfunction (2) Peyronie's disease: Code(s): N48.6 - Induration penis plastica Category: Medical Plan Six-month follow-up Medications: Refilled tadalafil 20 mg PO ONCE 30 days PRN 30 tabs 0RF sexual activity N52.2 - Drug- induced erectile dysfunction, N52.9 - Male erectile dysfunction, unspecified tadalafil 10 mg PO DAILY 90 days 90 tabs 1RF sexual activity N52.2 - Drug- induced erectile dysfunction, N52.9 - Male erectile dysfunction, unspecified Patient Instructions: Imaging studies, laboratory and physical exam results were discussed and reviewed in detail. No major barriers to patient understanding were identified. An opportunity to ask questions regarding the treatment plan was provided. All questions were answered. The patient expressed understanding and agreement with the above treatment plan. The patient is aware they should contact our office by phone for worsening of their current condition or the appearance of new urologic symptoms. Compliance is encouraged with any medications and followup testing that is ordered. It is a privilege to participate in the urologic care of your patient. If you have any questions or concerns regarding treatment for the above conditions, or other urologic issues, please do not hesitate to contact me. The office telephone contact is [phone]. This note is constructed using voice recognition software. While every effort has been made to ensure accuracy dietary director errors may have been included. Yours sincerely, Dr Rocky Gaona MD, [facility] - Urology Providers of Expert, Compassionate Care for the Genitourinary System Coding Level of Care Code Est Pt Level 3 (09447) Diagnoses Drug-induced erectile dysfunction N52.2 Erectile dysfunction type: drug-induced Peyronie's disease N48.6
== END 2024-03-24 13:24 | disposition home or self-care (01) ==
PROVIDERS: PCP Physician Assistant; Visit Provider Urology
DX: N52.2 Drug-induced erectile dysfunction (principal); N48.6 Induration penis plastica
CPT/HCPCS: 99213

== ENCOUNTER → 2024-03-24 12:39 | Outpatient (BNVA) | payer OTHER, SELFPAY | PROVIDERS: PCP Physician Assistant; Visit Provider Urology | DX: N52.2 Drug-induced erectile dysfunction (principal); T50.905A Adverse effect of unspecified drugs, medicaments and biological substances, initial encounter; N48.6 Induration penis plastica | CPT/HCPCS: 99212 ==

== ENCOUNTER 2024-04-15 08:40 | Outpatient (AMB) | payer OTHER, SELFPAY ==
--- NOTE | 2024-04-15 08:42 | MHC.PC.OV ---
Vital Signs 04/15/24 08:43 Height 5 ft 6 in Weight 163 lb 2 oz BMI 26.3 BP 120/70 Blood Pressure Location Lt brachial Position Sitting Pulse 64 Pulse Source Pulse Oximeter Pulse Oximetry (%) 95 Oxygen Delivery Method Room Air Intake Visit Reasons: 3mof\u Intake Note: Patient is here to follow up on ED, Hypercholesterolemia. Customer Management Specialist Required: Yes Customer Management Specialist Language: Superintendent Track Name: Geovani ([phone]) Information Interpreted: non-clinical & clinical Inspector And Mender: Not Required per policy Accompanied by: Self / Same As Patient Allergies No Known Allergies Allergy (Verified 04/15/24 09:03) Medication List - Last Reconciled 04/15/24 by Tejas Fox MD atorvastatin 10 mg PO DAILY 90 days naproxen 250 mg PO BID PRN tadalafil 20 mg PO ONCE PRN 30 days tadalafil 10 mg PO DAILY 90 days Tobacco use date assessed: 04/15/24 Dental Screening Dental Screen Date: 12/25/23 HPI 3mof\u HPI Details 63-year-old male presents to the office to discuss his medical conditions. An rim roller operator using the iPad was utilized. Patient is compliant with his cholesterol medication. He is requesting a refill. Patient was seen by the urologist and started on tadalafil. He has no new complaints today. [facility] Medical History Erectile dysfunction No pertinent family history Herniated cervical disc Lower back pain No pertinent past medical history Surgical History No pertinent past surgical history Family History Mother No problems noted. Father No problems noted. Brother No problems noted. Brother No problems noted. Brother No problems noted. Brother No problems noted. Sister No problems noted. Sister No problems noted. Sister No problems noted. Son No problems noted. Son No problems noted. Son No problems noted. Daughter No problems noted. Social History Housing: Apartment Patient Tobacco Use Status: Never used Tobacco e-Cigarette/Vaping Use: Never Used Second Hand Smoke Exposure: No service: No Current occupational status: unemployed Cognitive needs: No Hearing needs: No Vision needs: Yes Questionnaire Thrive Questionnaire Date Thrive assessed: 12/25/23 DWIGHT-7 AMB Questionnaire DWIGHT-7 Date DWIGHT - 7 assessed: 12/25/23 Source: Developed by Drs. Wan Donis, Ailyn Fay, Chase Mercedes and colleagues, with an educational walt from [email or web address]. Physical exam (Primary Care) BMI result Body Mass Index 26.3 Tobacco/Smoking Status: Tobacco use Status Tobacco use date assessed 12/25/23 12/25/23 10:17 Patient Tobacco Use Status Never used Tobacco 12/25/23 10:17 Tobacco use type 06/06/23 13:11 e-Cigarette/Vaping Use Never Used 12/25/23 10:17 Thrive Assessment: Date of Thrive Assessment Date Thrive assessed 12/25/23 12/25/23 10:17 Const Other: Physical exam was deferred today. Assessment and Plan Assessment & Plan (1) Hypercholesteremia: Code(s): E78.00 - Pure hypercholesterolemia, unspecified Plan: Statin prescription was refilled. Fasting blood work has been ordered. Patient will follow-up with his regular PCP henceforth. Medications: Refilled atorvastatin 10 mg PO DAILY 90 tabs 1RF 90 days E78.00 - Pure hypercholesterolemia, unspecified Coding Level of Care Code Est Pt Level 3 (41884) Complex EM visit Add On G2211 Diagnoses Hypercholesteremia E78.00
[2024-04-15 08:43] VITALS: BP 120/70; PULSE 64; O2SAT 95; BMI 26.3
== END 2024-04-15 09:05 | disposition home or self-care (01) ==
PROVIDERS: PCP Physician Assistant; Visit Provider Internal Medicine
DX: E78.00 Pure hypercholesterolemia, unspecified (principal)
CPT/HCPCS: 99213; G2211

== ENCOUNTER 2024-09-24 13:51 | Outpatient (AMB) | payer OTHER, SELFPAY ==
--- NOTE | 2024-09-24 13:51 | A.OFFVIS_ITS ---
Intake Visit Reasons: 6m/F/U Intake Note: Patient presents today for follow up on : peyroniisa's dsease and erectile dysfunction Urology Medication: tadalafil Antibiotic Allergies:None Blood Thinners:none Television Production Technician Required: Yes Television Production Technician Services: Television Production Technician Present Television Production Technician Name: [id number] Allergies No Known Allergies Allergy (Verified 09/24/24 14:09) Medication List - Last Reconciled 09/24/24 by JONEL Sosa atorvastatin 10 mg PO DAILY 90 days naproxen 250 mg PO BID PRN tadalafil 20 mg PO ONCE PRN 30 days tadalafil 10 mg PO DAILY 90 days HPI Comments Details: Edgardo is a pleasant 64 year old Citizen [place] speaking male patient of Dr. Van. He has a PMH of ED, herniated disc, and back pain. He is being followed up on today via video telehealth for his erectile dysfunction. In discussion with the patient today he reports feeling daily dose of tadalafil as well as on demand dosing has been helpful in maintaining and obtaining his erections. He does note intermittent episodes of dysuria over the last few days. He otherwise denies urinary urgency, urinary frequency, incontinence, nocturia, hematuria,foul smelling urine, changes to urinary stream, flank pain, fever, and or chills. We discussed obtaining urinalysis for further assessment evaluation. We discussed at length potential causes of dysuria as well as erectile dysfunction. We discussed further treatment options for erectile dysfunction as well as risks and benefits of these treatment options. He otherwise offers no other issues or concerns at this time. PSAs are as follows: 10/09 2.3 PFSH Medical History Erectile dysfunction No pertinent family history Herniated cervical disc Lower back pain No pertinent past medical history Surgical History No pertinent past surgical history Family History Mother No problems noted. Father No problems noted. Brother No problems noted. Brother No problems noted. Brother No problems noted. Brother No problems noted. Sister No problems noted. Sister No problems noted. Sister No problems noted. Son No problems noted. Son No problems noted. Son No problems noted. Daughter No problems noted. Social History Housing: Apartment Patient Tobacco Use Status: Never used Tobacco e-Cigarette/Vaping Use: Never Used Second Hand Smoke Exposure: No service: No Current occupational status: unemployed Cognitive needs: No Hearing needs: No Vision needs: Yes Review of Systems Const All systems reviewed & are unremarkable except as noted in HPI and below Physical Exam Const General: cooperative, healthy appearing, comfortable, no acute distress, well developed, alert and awake Orientation/consciousness: patient oriented x3 Resp Effort & Inspection: normal respiratory effort and able to speak in complete sentences Neuro General: patient oriented x3 Psych Appearance: grossly normal and well kempt Mental Status: mental status grossly normal Speech and movement: Clear speech present Affect: normal affect Attitude: cooperative Thought process: Normal thought process present Thought content: Normal thought content present Insight: Fair insight present (Psych) Judgement: Fair judgement present (Psych) Telehealth Telehealth Telehealth Platform: [employer] Location of provider rendering services: practice address Location of patient: address on file Patient Identification confirmed using: Name, : Yes Telehealth method: video Patient verbally consented to treatment: Yes Patient verbally consented to billing insurance company: Yes Patient informed of any privacy concerns related to visit: Yes Minutes spent on Phone/Video with Pt.: 15 Assessment & Plan Assessment & Plan (1) Dysuria: Code(s): R30.0 - Dysuria Category: Medical (2) Erectile dysfunction: Code(s): N52.9 - Male erectile dysfunction, unspecified Category: Medical Qualifiers: Erectile dysfunction type: drug-induced Qualified Code(s): N52.2 - Drug-induced erectile dysfunction Plan Will continue daily dosing of tadalafil as well as on demand dosing. We discussed at length potential causes of ED as well as dysuria. We discussed lifestyle modifications to assist with ED. We discussed further treatment options and risks and benefits of these treatment options. Discussed obtaining urinalysis for further assessment evaluation of dysuria; will await results for potential treatment. Will obtain PSA in 6 months. Follow-up in 6 months with lab to be completed prior; or sooner with any issues, concerns, and or questions. Orders: Orders Prostate Specific Antigen 6 Months N52.2 - Drug-induced erectile dysfunction UA CC w/rflx Micro + Cult Today R30.0 - Dysuria Medications: Refilled tadalafil 10 mg PO DAILY 90 days 90 tabs 2RF sexual activity N52.2 - Drug- induced erectile dysfunction, N52.9 - Male erectile dysfunction, unspecified tadalafil 20 mg PO ONCE 30 days PRN 15 tabs 6RF sexual activity N52.2 - Drug- induced erectile dysfunction, N52.9 - Male erectile dysfunction, unspecified Patient Instructions: The patient had an opportunity to ask questions regarding the treatment plan. All questions were answered. Physical exam, labs, and imaging were discussed and reviewed in detail. As well as risks, benefits, and discussion of treatment choices. No major barriers to understanding were identified. The patient expressed understanding and agreement with the above treatment plan. The patient was made aware they should contact our office by phone for worsening of their current condition, the appearance of new symptoms, or with any questions or concerns. Compliance is encouraged with any medications and follow up testing that is ordered. It is a privilege to be allowed the opportunity to participate in? your urological care.? Again, if you have any questions or concerns If you have any questions or concerns please do not hesitate to contact me. The office is [phone]. This note is constructed using voice recognition software. While every effort has been made to ensure accuracy pullman clerk errors may have been included. Yours sincerely, JONEL Sosa Coding Level of Care Code Tele Est Pt Level 3 (24142) Diagnoses Dysuria R30.0 Drug-induced erectile dysfunction N52.2 Erectile dysfunction type: drug-induced
== END 2024-09-24 15:06 | disposition home or self-care (01) ==
LOC: HO.HUSH 13:51
PROVIDERS: PCP Internal Medicine; Visit Provider Nurse Practitioner Family
DX: R30.0 Dysuria (principal); N52.2 Drug-induced erectile dysfunction
CPT/HCPCS: 99213

== ENCOUNTER → 2024-09-24 13:51 | Outpatient (BNVA) | payer OTHER, SELFPAY | PROVIDERS: PCP Internal Medicine; Visit Provider Nurse Practitioner Family ==

== ENCOUNTER 2024-11-04 14:51 | Outpatient (AMB) | payer OTHER, SELFPAY ==
--- NOTE | 2024-11-04 14:57 | A.OFFPC_ITS ---
Vital Signs 11/04/24 15:02 Height 5 ft 6 in Weight 162 lb 4 oz BMI 26.2 BP 110/68 Blood Pressure Location Lt brachial Position Sitting Pulse 72 Pulse Source Pulse Oximeter Temp 96.9 F Temp Source Temporal Artery Scan Pulse Oximetry (%) 97 Oxygen Delivery Method Room Air Intake Visit Reasons: follow up Intake Note: Dr. Bee gotti here for routine F/U. Field Ring Assembler Required: Yes Field Ring Assembler Language: Head Sawyer Name: Used tablet ID # [id number] Accompanied by: Self / Same As Patient Allergies No Known Allergies Allergy (Verified 11/04/24 15:09) Medication List - Last Reconciled 11/04/24 by Aubrey Van PA-C atorvastatin 10 mg PO DAILY 90 days naproxen 250 mg PO BID PRN tadalafil 10 mg PO DAILY 90 days tadalafil 20 mg PO ONCE PRN 30 days Tobacco use date assessed: 04/15/24 Dental Screening Dental Screen Date: 12/25/23 HPI follow up HPI Details Patient is a 64 year-old female here today for follow-up visit. Patient is Irish-speaking only thus used a remote full time staff interpreter. Has a past medical history of hyperlipidemia and erectile dysfunction, lumbar disc disease. Erectile dysfunction: Followed by [place] urologist continues with the use of tadalafil good effect. HLD: Most recent lipid panel showing elevated total cholesterol. Was previously on statin therapy though has been taken. Will work on lifestyle modifications on reducing his low high cholesterol foods in his diet. If LDL remains above 160 will consider restarting low-dose statin therapy. [facility] Medical History Erectile dysfunction No pertinent family history Herniated cervical disc Lower back pain No pertinent past medical history Surgical History No pertinent past surgical history Family History Mother No problems noted. Father No problems noted. Brother No problems noted. Brother No problems noted. Brother No problems noted. Brother No problems noted. Sister No problems noted. Sister No problems noted. Sister No problems noted. Son No problems noted. Son No problems noted. Son No problems noted. Daughter No problems noted. Social History Housing: Apartment Patient Tobacco Use Status: Never used Tobacco e-Cigarette/Vaping Use: Never Used Second Hand Smoke Exposure: No service: No Current occupational status: unemployed Cognitive needs: No Hearing needs: No Vision needs: Yes Questionnaire PHQ-9 Over the last 2 weeks, how often have you been bothered by any of the following problems? 1. Little interest or pleasure in doing things: not at all 2. Feeling down, depressed, or hopeless: not at all 3. Trouble falling or staying asleep, or sleeping too much: not at all 4. Feeling tired or having little energy: not at all 5. Poor appetite or overeating: not at all 6. Feeling bad about yourself - or that you are a failure or have let yourself or your family down: not at all 7. Trouble concentrating on things, such as reading the newspaper or watching television: not at all 8. Moving or speaking so slowly that other people could have noticed. Or the opposite - being so fidgety or restless that you have been moving around a lot more than usual: not at all 9. Thoughts that you would be better off or of hurting yourself in some way: not at all Total score: 0 Depression Screening Interpretation: Negative Depression Screening Done: Yes 03088 - PHQ-9 Billing: Yes Source: Developed by Drs. Wan Donis, Ailyn Fay, Chase Mercedes and colleagues, with an educational walt from [employer]. Thrive Questionnaire Date Thrive assessed: 11/04/24 I am a: Patient What is your living situation today?: I have a steady place to live Within the past 12 months, did the food you bought not last and you didn't have the money to get more?: Never true Within the past 12 months, did you worry whether your food would run out before you got money to buy more?: Never true Do you have trouble paying for medicines?: No Do you have trouble getting transportation to medical appointments?: No Do you have trouble paying your heating and electricity bill?: No Do you have trouble taking care of your child, family member or friend?: No Do you have trouble with day-to-day activities such as bathing, preparing meals, shopping, managing finances, etc.?: No Are you currently unemployed and looking for a job?: No Are you interested in more education?: No Please select the resources that you would like help with: None Currently or been in a relationship where the following occur: No concerns reported THRIVE Score: 0 AUDIT C Alcohol Use Questionnaire (AUDIT-C) 1. How often do you have a drink containing alcohol?: Never 3. How often do you have six or more drinks on one occasion?: Never Total Score: 0 DWIGHT-7 AMB Questionnaire DWIGHT-7 Date DWIGHT - 7 assessed: 11/04/24 Feeling nervous, anxious, or on edge: 0 = Not at all Not being able to stop or control worryin = Not at all Worrying too much about different things: 0 = Not at all Trouble relaxin = Not at all Being so restless that it is hard to sit still: 0 = Not at all Becoming easily annoyed or irritable: 0 = Not at all Feeling afraid as if something awful might happen: 0 = Not at all Total DWIGHT-7 score (0-4 normal; 5-9 mild; 10-14 moderate; 15-21 severe): 0 Source: Developed by Drs. Wan Donis, Ailyn Fay, Chase Mercedes and colleagues, with an educational walt from [employer]. DWGIHT-7 Assessment Billing DWIGHT-7 Assessment Tool: DWIGHT-7 Assessment 07651 Review of Systems Const Denies headache(s) Eyes Denies loss of vision ENT Denies vertigo, Denies dizziness, Denies headache(s) and Denies sore throat Card Denies chest pain, Denies leg edema and Denies lightheadedness Resp Denies cough, Denies hemoptysis and Denies wheezing GI Denies abdominal pain, Denies melena, Denies constipation, Denies diarrhea and Denies vomiting Denies dysuria, Denies urinary frequency and Denies urinary urgency Musc Denies arthralgias, Denies joint swelling, Denies numbness and Denies tingling Neuro Denies Abnormal speech present, Denies behavioral changes, Denies vertigo, Denies dizziness, Denies headache(s), Denies loss of vision, Denies memory loss, Denies numbness and Denies tingling Psych Denies anxiety, Denies behavioral changes, Denies depression, Denies memory loss and Denies panic attacks Angel/Lymph Denies easy bleeding and Denies easy bruising Aller/Immun Denies wheezing Physical exam (Primary Care) Vital Signs: Last Vital Signs Temp 96.9 F 11/04/24 15:02 Pulse 72 11/04/24 15:02 BP 110/68 11/04/24 15:02 Pulse Ox 97 11/04/24 15:02 Oxygen Delivery Method Room Air 11/04/24 15:02 BMI result Body Mass Index 26.2 Tobacco/Smoking Status: Tobacco use Status Tobacco use date assessed 04/15/24 11/04/24 14:57 Patient Tobacco Use Status Never used Tobacco 11/04/24 14:57 Tobacco use type 06/06/23 13:11 e-Cigarette/Vaping Use Never Used 11/04/24 14:57 PHQ-9: PHQ-9 Score PHQ-9: Total score 0 11/04/24 15:04 Depression Screening Interpretation: Negative Thrive Assessment: Date of Thrive Assessment Date Thrive assessed 11/04/24 11/04/24 14:58 Currently or been in a relationship where the following occur: No concerns reported Const General: healthy appearing, no acute distress, alert and awake Nutritional Appearance: well nourished Orientation/consciousness: oriented to person, oriented to place and oriented to time HENMT Ears: TM's normal bilaterally General nose exam: Normal nasal mucous membranes and turbinates present Eyes Conjunctivae: conjunctivae normal Sclerae: sclerae normal Pupils: Equal, round and reactive pupils present Neck Neck: Yes no lymphadenopathy and Yes no JVD Thyroid: Thyroid normal Carotids: no bruits Resp Effort & Inspection: normal respiratory effort and not tachypneic Auscultation: no crackles, no rales, no rhonchi and no wheezes Cardio Rate: regular rate Rhythm: regular rhythm Heart sounds: no murmurs and normal S1 and S2 GI Palpation (GI): Soft to palpation, nontender, no hepatomegaly and no splenomegaly Auscultation: normal bowel sounds Skin General skin exam: no rashes or lesions noted and dry skin Neuro General: oriented to person, oriented to place and oriented to time Cranial nerves: Yes Equal, round and reactive pupils present Speech: No Abnormal speech present Gait exam (Neuro): Normal gait present Motor exam (neuro): no tremor noted Extrem Right upper extremity: full ROM Left upper extremity: full ROM Right lower extremity: full ROM; no edema Left lower extremity: full ROM; no edema Psych Mental Status: mental status grossly normal Speech and movement: Normal speech and movement present Affect: normal affect Attitude: cooperative Thought process: Normal thought process present Coding Level of Care Code Est Pt Level 4 (38511) Diagnoses Hypercholesteremia E78.00 Drug-induced erectile dysfunction 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 Most recent lipid panel showing borderline high cholesterol and LDL. Will recheck fasting lipid panel LDL above 160 will consider increasing potency of statin. Goal LDL to be below 160 (2) Erectile dysfunction: Code(s): N52.9 - Male erectile dysfunction, unspecified Category: Medical Qualifiers: Erectile dysfunction type: drug-induced Qualified Code(s): N52.2 - Drug-induced erectile dysfunction Plan: Continues to follow your by Urology and continues with the use of tadalafil with good effect. Orders: Orders Complete Blood Count no Diff Today E78.00 - Pure hypercholesterolemia, unspecified Lipid Panel Today E78.00 - Pure hypercholesterolemia, unspecified Comprehensive [place]. Panel Fast Today E78.00 - Pure hypercholesterolemia, unspecified Medications: Changed From naproxen 250 mg PO BID PRN S16.1XXS - Strain of muscle, fascia and tendon at neck level, sequela To naproxen 250 mg PO BID 30 days 60 tabs 2RF S16.1XXS - Strain of muscle, fascia and tendon at neck level, sequela Refilled naproxen 250 mg PO BID 30 days 60 tabs 2RF S16.1XXS - Strain of muscle, fascia and tendon at neck level, sequela Patient Instructions: Goal: LDL to be below 160 Barriers: Adherence to physical activity and healthy eating habits.
[2024-11-04 15:02] VITALS: BP 110/68; PULSE 72; TEMP 36.1; O2SAT 97; BMI 26.2
== END 2024-11-04 15:21 | disposition home or self-care (01) ==
PROVIDERS: PCP Internal Medicine; Visit Provider Physician Assistant
DX: E78.00 Pure hypercholesterolemia, unspecified (principal); N52.2 Drug-induced erectile dysfunction

== ENCOUNTER → 2024-11-04 14:51 | Outpatient (BNVA) | payer OTHER, SELFPAY | PROVIDERS: PCP Internal Medicine; Visit Provider Physician Assistant | DX: E78.00 Pure hypercholesterolemia, unspecified (principal); N52.2 Drug-induced erectile dysfunction | CPT/HCPCS: 96127; 99212 ==

== ENCOUNTER 2024-11-06 09:33 | Outpatient (REF) | payer OTHER, SELFPAY ==
[2024-11-06 10:40] LABS: Hematocrit 43.6 % (42.0-52.0); Hemoglobin 13.9 g/dl (14.0-18.0); Mean Corpuscular HGB Conc 31.9 g/dl (31.0-36.0); Mean Corpuscular Hemoglobin 26.6 pg (27.0-33.0); Mean Corpuscular Volume 83.4 fL (80.0-98.0); Mean Platelet Volume 10.3 fL (9.4-12.4); Platelet Count 238 X10*3/uL (160-400); Red Blood Count 5.23 X10*6/uL (4.60-5.80); Red Cell Distribution Width 14.5 % (11.0-16.0); White Blood Count 8.3 X10*3/uL (4.8-10.8)
[2024-11-06 11:00] LABS: Alanine Aminotransferase 28 U/L (0-40); Albumin Level 4.1 g/dL (3.5-5.0); Alkaline Phosphatase 99 U/L (39-117); Anion Gap 10 (12-20); Aspartate Amino Transferase 60 U/L (5-37); Bilirubin Total 0.5 mg/dL (0.0-1.0); Blood Urea Nitrogen 23 mg/dL (9-16); Calcium 8.9 mg/dL (8.4-10.2); Carbon Dioxide 27 mmol/L (22-29); Chloride 108 mmol/L (96-108); Cholesterol 173 mg/dL (<200); Estimated Glomerular Filt Rate > 60; Glucose Fasting 94 mg/dL (60-99); HDL Cholesterol 54 mg/dL (>40); LDL Cholesterol Calculated 102 mg/dL (<100); Potassium 3.8 mmol/L (3.3-5.1); Sodium 141 mmol/L (135-145); Total Protein 7.4 g/dL (6.5-8.0); Triglycerides 88 mg/dL (<150)
== END 2024-11-06 09:34 | disposition home or self-care (01) ==
LOC: HO.10HDL 09:33
PROVIDERS: Visit Provider Physician Assistant
DX: E78.00 Pure hypercholesterolemia, unspecified (principal)
CPT/HCPCS: 36415; 80053; 80061; 85027